=== PATIENT | male | born 1960 | race African-American/Black ===

== ENCOUNTER 2022-01-20 21:45 | Inpatient (IN) | payer MEDICAID ==
[~2022-01-20] VITALS: Ht 188 cm; Wt 120.2 kg
[~2022-01-20 21:45] MED LIST: PRO40 PO
[2022-01-20 22:20] VITALS: BP_SYST 144
[2022-01-20 23:17] LABS: BILIRUBIN,URINE NEGATIVE (NEGATIVE); CLARITY/URINE CLEAR (CLEAR); COLOR,URINE YELLOW (YELLOW); GLUCOSE,URINE NEGATIVE (NEGATIVE); KETONES,URINE TRACE (NEGATIVE); LEUKOCYTE ESTERASE ,URINE NEGATIVE (NEGATIVE); NITRITE, URINE NEGATIVE (NEGATIVE); PH,URINE 5.5 (5.0-8.0); PROTEIN URINE NEGATIVE (NEGATIVE); UROBILINOGEN,URINE 0.2 (0.2-1.0)
[2022-01-20 23:22] LABS: BLOOD, URINE TRACE (NEGATIVE)
[2022-01-20 23:27] LABS: BACTERIA,URINE FEW /HPF (None Seen); RBC,URINE 0-3 /HPF (0-3); WBC,URINE 0-3 /HPF (0-3)
[2022-01-20 23:28] LABS: HYALINE CASTS, URINE 0-10 /LPF (None Seen)
[2022-01-20] MEDS ORDERED: MORPHINE 2 MG/ML INJ. SYRINGE IVP ONE (23:45)
[2022-01-21 00:40] LABS: BARBITURATE, URINE NEGATIVE (NEG <=200); BENZODIAZEPINE, URINE NEGATIVE (NEG <=150); CANNABINOID, URINE NEGATIVE (NEG <=50); COCAINE, URINE NEGATIVE (NEG <=150); METHAMPHETAMINES SCREEN,URINE NEGATIVE (NEG <=500); OPIATE, URINE NEGATIVE (NEG <=100); PHENCYCLIDINE SCREEN,URINE NEGATIVE (NEG <=25); UR TRICYCLIC ANTIDEPRESSANTS NEGATIVE (NEG <=300); URINE AMPHETAMINE NEGATIVE (NEG <=500); URINE METHADONE NEGATIVE (NEG <=200); URINE OXYCODONE SCREEN NEGATIVE (NEG <=100); URINE PROPOXYPHENE SCREEN NEGATIVE (NEG <=300)
[2022-01-21 01:17] LABS: BASOPHILS # (AUTO) 0.1 K/uL (0.0-0.2); BASOPHILS % (AUTO) 0.3 % (0.0-2.0); EOSINOPHILS # (AUTO) 0.1 K/uL (0.0-0.4); EOSINOPHILS % (AUTO) 0.5 % (0.0-4.0); HEMATOCRIT 35.7 % (36-54); HEMOGLOBIN 12.1 g/dL (14.0-18.0); LYMPHOCYTES # (AUTO) 1.7 K/uL (1.0-5.5); LYMPHOCYTES % (AUTO) 10.1 % (20.5-51.5); MEAN CORPUSCULAR HEMOGLOBIN 30 pg (27-31); MEAN CORPUSCULAR HGB CONC 34 % (32-36); MEAN CORPUSCULAR VOLUME 90 fL (79.0-98.0); MONOCYTES % (AUTO) 6.2 % (1.7-9.3); NEUTROPHILS # (AUTO) 13.7 K/uL (1.8-7.7); NEUTROPHILS % (AUTO) 82.9 % (40.0-70.0); PLATELET COUNT (AUTO) 353 K/uL (130-430); RED BLOOD CELL COUNT(AUTO) 3.99 MIL/uL (4.2-6.2); RED CELL DISTRIBUTION WIDTH 13.5 % (9.0-15.0); WHITE BLOOD COUNT (AUTO) 16.5 K/uL (4.8-10.8)
[2022-01-21 01:18] LABS: ANION GAP 6 (5-15); CALCIUM 8.6 mg/dL (8.4-11.0); CHLORIDE 96 mmol/L (98-107); CREATININE 1.44 mg/dL (0.55-1.30); GLUCOSE 95 mg/dL (70-99); SODIUM SERUM 133 mmol/L (136-145); UREA NITROGEN, BLOOD 14 mg/dL (8-21)
[2022-01-21 01:27] LABS: ALANINE AMINOTRANSFERASE 23 U/L (12-78); ALBUMIN 3.8 g/dL (3.4-4.8); ASPARTATE AMINOTRANSFERASE 51 U/L (10-37); TOTAL BILIRUBIN 2.2 mg/dL (0.0-1.0)
[2022-01-21 01:38] LABS: GFR AFRICAN AMERICAN 64 mL/min (>90)
[2022-01-21 01:41] LABS: POTASSIUM 2.7 mmol/L (3.5-5.1)
[2022-01-21 01:47] LABS: ALCOHOL, BLOOD < 3 mg/dL (<10)
[2022-01-21] MEDS ORDERED: MAGNESIUM OXIDE 400 MG TABLET PO ONE (02:15)
[2022-01-21] MEDS ORDERED: POTASSIUM CHLORIDE 20 MEQ TAB.PRT.SR PO ONE (02:15)
[2022-01-21] MEDS ORDERED: POTASSIUM CHLORIDE 20 MEQ TAB.PRT.SR ONE (03:31)
[2022-01-21] MEDS ORDERED: POTASSIUM CHLORIDE 10 MEQ TAB.PRT.SR ONE (03:32)
[2022-01-21] MEDS ORDERED: MAGNESIUM OXIDE 400 MG TABLET ONE (04:01)
[2022-01-21] MEDS ORDERED: HYDROmorphone 2 MG/ML VIAL IVP PRN (07:45)
[2022-01-21] MEDS ORDERED: [UNRECOGNIZED DRUG - CODE] PO (14:18)
[2022-01-21 15:36] VITALS: BP_SYST 181
[2022-01-21] MEDS ORDERED: LOSARTAN POTASSIUM 50 MG TABLET (COZAAR) PO ONE (16:00)
[2022-01-21] MEDS ORDERED: FERR-31 PO (16:46)
[2022-01-21 20:00] VITALS: BP_SYST 159
[2022-01-21] MEDS: LOSARTAN POTASSIUM 50 MG TABLET (COZAAR) PO SCH (21:04)
[2022-01-21] MEDS: ENOXAPARIN SODIUM 30 MG/0.3 ML SYRINGE SUBCUT SCH (21:05)
[2022-01-21] MEDS: KCL 20 mEq in D5NS 1000 mL 1,000 ML IV SCH (21:06)
[2022-01-22 02:00] VITALS: BP_SYST 146
[2022-01-22 08:00] VITALS: BP_SYST 130
[2022-01-22 08:34] LABS: BASOPHILS # (AUTO) 0.1 K/uL (0.0-0.2); BASOPHILS % (AUTO) 0.6 % (0.0-2.0); EOSINOPHILS # (AUTO) 0.2 K/uL (0.0-0.4); EOSINOPHILS % (AUTO) 2.1 % (0.0-4.0); HEMATOCRIT 37.5 % (36-54); HEMOGLOBIN 12.6 g/dL (14.0-18.0); LYMPHOCYTES # (AUTO) 1.2 K/uL (1.0-5.5); LYMPHOCYTES % (AUTO) 12.8 % (20.5-51.5); MEAN CORPUSCULAR HEMOGLOBIN 30 pg (27-31); MEAN CORPUSCULAR HGB CONC 34 % (32-36); MEAN CORPUSCULAR VOLUME 90 fL (79.0-98.0); MONOCYTES # (AUTO) 0.6 K/uL (0.0-1.0); MONOCYTES % (AUTO) 6.7 % (1.7-9.3); NEUTROPHILS # (AUTO) 7.1 K/uL (1.8-7.7); NEUTROPHILS % (AUTO) 77.8 % (40.0-70.0); PLATELET COUNT (AUTO) 356 K/uL (130-430); RED BLOOD CELL COUNT(AUTO) 4.17 MIL/uL (4.2-6.2); RED CELL DISTRIBUTION WIDTH 13.9 % (9.0-15.0); WHITE BLOOD COUNT (AUTO) 9.1 K/uL (4.8-10.8)
[2022-01-22] MEDS: LOSARTAN POTASSIUM 50 MG TABLET (COZAAR) PO SCH ×2 (09:07→21:34)
[2022-01-22 09:09] LABS: CALCIUM 8.7 mg/dL (8.4-11.0); POTASSIUM 3.2 mmol/L (3.5-5.1)
[2022-01-22] MEDS ORDERED: POTASSIUM CHLORIDE 20 MEQ TAB.PRT.SR PO ONE (10:45)
[2022-01-22] MEDS ORDERED: amLODIPine BESYLATE 10 MG TABLET PO ONE (11:15)
[2022-01-22 11:56] VITALS: BP_SYST 192
[2022-01-22] MEDS: KCL 20 mEq in D5NS 1000 mL 1,000 ML IV SCH ×2 (12:54→14:45)
[2022-01-22] MEDS: traMADol HCL HCL 50 MG TABLET (ULTRAM) PO SCH ×2 (12:54→18:58)
[2022-01-22 16:45] VITALS: BP_SYST 190
[2022-01-22] MEDS ORDERED: CARBIDOPA/LEVODOPA 10/100 MG TABLET PO SCH (17:00)
[2022-01-22] MEDS ORDERED: cloNIDine HCL 0.1 MG TABLET PO PRN (18:00)
[2022-01-22] MEDS ORDERED: CARVEDILOL 12.5 MG TABLET (COREG) PO SCH ×2 (18:00→18:01)
[2022-01-22] MEDS ORDERED: CARVEDILOL 12.5 MG TABLET (COREG) PO ONE (18:15)
[2022-01-22 20:00] VITALS: BP_SYST 174
[2022-01-22] MEDS: CARBIDOPA/LEVODOPA 10/100 MG TABLET PO SCH (21:33)
[2022-01-22] MEDS: ENOXAPARIN SODIUM 30 MG/0.3 ML SYRINGE SUBCUT SCH (21:33)
[2022-01-23 00:58] VITALS: BP_SYST 152
[2022-01-23] MEDS: KCL 20 mEq in D5NS 1000 mL 1,000 ML IV SCH ×2 (03:02→10:45)
[2022-01-23] MEDS: traMADol HCL HCL 50 MG TABLET (ULTRAM) PO SCH ×3 (05:12→12:42)
[2022-01-23 08:00] VITALS: BP_SYST 176
[2022-01-23] MEDS: CARBIDOPA/LEVODOPA 10/100 MG TABLET PO SCH ×2 (08:33→12:44)
[2022-01-23] MEDS: LOSARTAN POTASSIUM 50 MG TABLET (COZAAR) PO SCH (08:33)
[2022-01-23] MEDS ORDERED: amLODIPine BESYLATE 10 MG TABLET PO SCH (09:00)
[2022-01-23] MEDS ORDERED: CARVEDILOL 12.5 MG TABLET (COREG) PO SCH (09:00)
[2022-01-23 12:00] VITALS: BP_SYST 138
[2022-01-23] MEDS ORDERED: POTASSIUM CHLORIDE 20 MEQ TAB.PRT.SR PO ONE (12:30)
[2022-01-23 13:13] VITALS: BP_SYST 138
== END 2022-01-23 16:30 | disposition home or self-care (01) | DRG 347 ==
LOC: SED 21:45 → UNDOADMIN 01-21 07:34 → STU 01-21 07:34 → SMU 01-21 07:40
PROVIDERS: ADMIT Family Medicine; ATTEND Family Medicine
DX: M51.36 Other intervertebral disc degeneration, lumbar region (principal); N17.0 Acute kidney failure with tubular necrosis; M62.82 Rhabdomyolysis; G20 Parkinson's disease; R29.6 Repeated falls; R32 Unspecified urinary incontinence; E86.0 Dehydration; D64.9 Anemia, unspecified; Z20.822 Contact with and (suspected) exposure to COVID-19; I10 Essential (primary) hypertension; Z79.899 Other long term (current) drug therapy
CPT/HCPCS: 36415; 71045; 72128; 72131; 72148; 76376; 80048; 80053; 80307; 81000; 83735; 83880; 84484; 85025; 93005; 96372; 97110-GP; 97116-GP; 97530-GP; 99285; G0482; J1650; J2270